=== PATIENT | female | born 1980 | race Caucasian/White ===

== ENCOUNTER → 2023-04-11 12:45 | Outpatient (CLI) | payer OTHER, SELFPAY ==
--- NOTE | 2023-04-12 22:30 | DI.NM.S_ITS ---
DATE OF SERVICE: 04/11/2023 PROCEDURE: Pharmacological perfusion study. INDICATIONS: Chest pain with underlying stroke. RADIOPHARMACEUTICAL: 26.2 millicurie technetium-99m Myoview IV was injected at stress and 24.6 millicurie technetium-99m Myoview IV was injected at rest. CARDIAC STRESS: The patient underwent IV Lexiscan perfusion study under the supervision of an attending staff as per standard protocol. The patient remained hemodynamically stable. Resting blood pressure 132/92. Peak blood pressure 142/100. Baseline rhythm was sinus. With Lexiscan infusion, patient had short run of narrow QRS tachycardia: Differential diagnosis sinus tachycardia or short run of atrial tachycardia with up to [address] depression in inferior leads and V3 to V6, which was horizontal. The patient felt flushing, shortness of breath, as well as palpitation. No chest pain. Maximum heart rate 154 beats per minute. Tachycardia gradually settled down to sinus tachycardia. Transition smooth without any conversion pauses. Hence, most likely sinus tachycardia. No aminophylline needed. RAW DATA: Breast shadow seen. GATED STUDY: Stress LV ejection fraction is 69% without any obvious wall motion abnormalities. Resting end-diastolic volume 105 mL. TID ratio 0.90, which is within normal limits. Lung/heart ratio 0.30, which is within normal limits. MYOCARDIAL PERFUSION SCAN: Stress supine, resting supine and stress prone images were compared to each other. Stress supine and resting supine images revealed moderate size, mildly decreased perfusion of anterior wall, which got resolved during stress prone images suggestive of breast tissue attenuation artifact. Summed stress score and summed rest score is zero. CONCLUSION: This is a normal myocardial perfusion study with evidence of breast tissue attenuation artifact, which got resolved during stress prone images suggestive of breast tissue attenuation artifact. Summed stress score and summed rest score zero. With Lexiscan infusion, patient has short run of likely sinus tachycardia. However, atrial tachycardia cannot be ruled out. No obvious atrial flutter or fibrillation. [address] depression in inferior leads and lateral leads during tachycardia. As far as perfusion scan is concerned, this is a low-risk myocardial perfusion scan. Shannen Sanchez - JESUS MANUEL/stephanie/KEILA doc#: [id number]/job#: [id number] dd: 04/12/2023 17:03:00 dt: 04/12/2023 22:22:00 DICTATING MD/COPIES TO: Adolfo Verdin MD COPIES MNE: MARIANNA;
== END ==
PROVIDERS: PCP Physician Assistant Medical; Referring Provider Physician Assistant Medical; Visit Provider Physician Assistant Medical
DX: R07.9 Chest pain, unspecified (principal); R00.0 Tachycardia, unspecified
CPT/HCPCS: 78452; 93017; A9502; J2785

== ENCOUNTER → 2023-04-12 07:34 | Outpatient (CLI) | payer OTHER, SELFPAY ==
--- NOTE | 2023-04-12 | DI.ECHO.S_ITS ---
[facility] +---------+ : : [address] : : : : [id number] : : : : Phone: [phone]---------+ Echocardiogram Report + + :Name: SHANDA BOATENG Study Date: 04/12/2023 Height: 64.5 in: :[facility] ReadingLocation: Weight: 150 lb : : Gender: Female BSA: 1.7 m2 : :: 1980 Age: 42 yrs BP: 151/92 mmHg: :Reason For Study: CHEST PAIN : :Ordering Physician: DIANE, : :MAIK Performed By: Renetta Atkins : :Referring: MAIK CONTRERAS : + + Interpretation Summary Normal echo study. Procedure: A two-dimensional transthoracic echocardiogram with color flow and Doppler was performed. The study quality was technically adequate. There is no prior echocardiogram noted for this patient. The patient was in sinus rhythm with heart rates between 57-63 bpm during the exam. Left Ventricle: The left ventricle is normal in size and wall thickness. The ejection fraction is estimated to be 55-60%. There are no focal wall motion abnormalities. Diastolic parameters suggest probable normal left ventricular diastolic function and normal filling pressures. Right Ventricle: The right ventricle is normal in size and function. Atria: The left atrial size is normal. Right atrial size is normal. There is no Doppler evidence for an interatrial shunt. Mitral Valve: The mitral valve is normal in structure and function. There is trace mitral regurgitation. Aortic Valve: The aortic valve is trileaflet. The aortic valve opens well. There is no aortic valve stenosis. No aortic regurgitation is present. Tricuspid Valve: The tricuspid valve is normal in structure and function. There is trace tricuspid regurgitation. The right ventricular systolic pressure is estimated to be at least 22 mmHg based on an estimated right atrial pressure of 3 mm Hg. Pulmonic Valve: The pulmonic valve leaflets are thin and pliable; valve motion is normal. There is mild pulmonic regurgitation. Great Vessels: The aortic root is normal size. The dimensions of the ascending aorta are normal. The IVC is of normal diameter and collapses greater than 50% with a sniff. This suggests a low right atrial pressure of 3 mm Hg. Pericardium/ Pleura There is no pericardial effusion. There is no pleural effusion. MMode/2D Measurements & Calculations LVIDd: 5.3 cm LVOT diam: 2.2 cm LVIDs: 3.5 cm Ao root diam: 3.2 cm FS: 32.9 % asc Aorta Diam: 2.8 cm IVSd: 0.59 cm Ao Arch Diam (Prox Trans): 2.6 cm LVPWd: 0.56 cm LV haro. diameter/BSA (cm/m^2): 3.0 LV sys. diameter/BSA (cm/m^2): 2.0 LA A2 area: 19.8 cm2 RA long axis: 4.7 cm LA A4 area: 18.2 cm2 RA area: 13.9 cm2 LA length (vol): 5.4 cm RA vol: 35.0 ml LA vol: 56.6 ml RA : 20.1 ml/m2 LA vol index: 32.5 ml/m2 IVC diam: 1.7 cm RVD1 (basal): 3.3 cm RVD2 (mid): 2.5 cm TAPSE: 2.1 cm Doppler Measurements & Calculations Ao V2 max: 123.2 cm/sec LVOT Max Raúl: 101.4 cm/sec Ao V2 mean: 87.8 cm/sec LV V1 max P.1 mmHg Ao max P.1 mmHg LV V1 VTI: 22.8 cm Ao mean P.4 mmHg TIFFANY(I,D): 3.1 cm2 Ao V2 VTI: 28.7 cm TIFFANY(V,D): 3.2 cm2 sev ratio: 0.79 TIFFANY indexed to BSA (cm^2/m^2): 1.8 MV E max raúl: 94.8 cm/sec TR max ralú: 215.3 cm/sec MV A max raúl: 63.1 cm/sec TR max P.5 mmHg MV E/A: 1.5 PA V2 max: 82.0 cm/sec Med Peak E' Raúl: 9.1 cm/sec PA V2 mean: 61.2 cm/sec E/E' med: 10.4 PA mean P.6 mmHg Lat Peak E' Raúl: 16.6 cm/sec E/E' lat: 5.7 E/e' average: 8.0 MV dec time: 0.19 sec SV(LVOT): 87.9 ml Electronically signed by: Raul Wilkerson on Reading Physician:04/12/2023 11:08 AM
== END ==
PROVIDERS: PCP Physician Assistant Medical; Referring Provider Physician Assistant Medical; Visit Provider Physician Assistant Medical
DX: R07.9 Chest pain, unspecified (principal)
CPT/HCPCS: 93306

== ENCOUNTER → 2023-10-31 09:50 | Outpatient (CLI) | payer OTHER, SELFPAY ==
--- NOTE | 2023-10-31 09:52 | DI.RAD.S_ITS ---
PROCEDURE: FL BARIUM SWALLOW W SPEECH INDICATIONS: DYSPHAGIA COMPARISON: None. TECHNIQUE: Examination was conducted in conjunction with speech pathology per standard protocol. In the lateral projection, filming was performed of the patient swallowing. AP projection filming may also be performed with patient swallowing. COMPARISON: FINDINGS: Function: The oral preparatory phase appears normal, with proper containment. The subsequent oral propulsive phase, pharyngeal phase, and esophageal phase of swallowing also appear normal with all proffered substances. No laryngotracheal penetration or aspiration. No pathologic vallecular pooling. Morphology: No cricopharyngeal bar is identified. No cervical esophageal webs. No Zenker's diverticulum. No strictures. IMPRESSION: No penetration or aspiration. Please see a detailed description of the findings on the speech pathology report. Dictated by: Maribell Rodríguez M.D. on 10/31/2023 at 11:27 Approved by: Maribell Rodríguez M.D. on 10/31/2023 at 11:28
--- NOTE | 2023-10-31 13:52 | ST.SWALLOW ---
Visit Care Team Role Provider Type Li Gracia PA-C Primary Care Provider Non-Staff Specialty: Medical Address: [address], [place], [address] Email: CADY Sotelo Attending Provider Non-Staff Referring Provider Specialty: Nursing Address: [facility] [address], [address], [place], [address] Email: Modified Barium Swallow Study [employer] Modified Barium Swallow Study Start: 10/31/23 10:31 Freq: Status: Active Protocol: Document 10/31/23 10:32 LNK (Rec: 10/31/23 10:51 LNK [id number]) Modified Barium Swallow Study Total Time Visit Start Time 10:00 Visit Stop Time 10:30 Total Visit Minutes 30 Referral Referring Physician CADY Barlow Reason for Referral globus; dysphagia Setting Setting Outpatient Care Patient Information Identification Type Name,Date of Patient History Pt was seen for a Modified Barium Swallow Study at the referral of her PCP. Pt reported she had a CVA in February 2019 after which she was seen in acute rehab (one month total time). Pt noted she experienced right side weakness of her face and extremities. Pt reported she continues to have right side weakness of her arm and leg as well as a numb/tingling sensation in her mouth. She described weakness on the right side of her neck. Subjective Observations Pt was seated in the fluoroscopy chair with directions and procedures described for her. Pt indicated when understood and agreed to proceed. Patient Positioning Position View Lat-A/P Imaging Lateral View Textures Administered Trials Presented Thin Liquid via Spoon (IDDSI 0 ),Thin Liquid via Cup (IDDSI 0 ),Moderately Thick Liquid via Spoon (IDDSI 3),Extremely Thick Liquid via Spoon (IDDSI 4),Regular (IDDSI 7) Barium Tablet Yes The IDDSI Framework Protocol: IDDSI.1 Oral Impairment Source: The Modified Barium Swallow Impairment Profile (MBSImP??) Lip Closure No labial escape Tongue Control During Bolus Hold Cohesive bolus between tongue to palatal seal Bolus Preparation/Mastication Timely & efficient chewing & mashing Bolus Transport/Lingual Motion Brisk tongue motion Oral Residue Complete oral clearance Initiation of Pharyngeal Swallow Bolus head in valleculae Additional Oral Impairment Observations OME was observed to be WNL. Slight asymmetry of right side with smile. Velar and lingual structures WNL. Pt is concerned about right side of neck weakness. Mastication was observed to be a rotary chew pattern with good bolus formation, control and AP transition. Pharyngeal Impairment Source: The Modified Barium Swallow Impairment Profile (MBSImP??) Soft Palate Elevation No bolus between soft palate & pharyngeal wall Laryngeal Elevation Comp.sup.move.thyroid cart.w/ comp.approx.arytenoids to epiglot petiole Anterior Hyoid Excursion Complete anterior movement Epiglottic Movement Complete inversion Laryngeal Vestibular Closure Complete; no air/contrast in laryngeal vestibule Pharyngeal Stripping Wave Present - complete Pharyngoesophageal Segment Opening Complete distention & complete duration; no obstruction of flow Tongue Base Retraction No contrast between tongue base & posterior pharyngeal wall Pharyngeal Residue Complete pharyngeal clearance Additional Pharyngeal Impairment Pharyngeal structures and Observations function observed to be WNL A/P View Textures Administered Trials Presented Thin Liquid via Cup (IDDSI 0) The IDDSI Framework Protocol: IDDSI.1 A/P View Observations Pharyngeal Contraction Complete Esophageal Clearance Upright Position Complete clearance; esophageal coating Vocal Fold Function Good Esophageal Function WFL Clinical Impressions Dysphagia Type WNL Patient Appropriate for Therapy No: Results WNL Recommendations Diet Comments No diet change recommended Treatment Plan Additional Recommended Referrals Physical therapy re: right side neck
== END ==
PROVIDERS: PCP Physician Assistant Medical; Referring Provider Nurse Practitioner; Visit Provider Nurse Practitioner
DX: R13.10 Dysphagia, unspecified (principal)
CPT/HCPCS: 74230; 92611